=== PATIENT | female | born 1980 | race Native Hawaiian/Other Pacific Islander ===

== ENCOUNTER 2020-03-29 13:03 | Outpatient (CLI) | payer OTHER | END 2020-03-29 19:26 | disposition home or self-care (01) | LOC: EMG 13:03 | PROVIDERS: ATTEND Pain Medicine Interventional Pain Medicine | DX: M50.222 Other cervical disc displacement at C5-C6 level (principal) | CPT/HCPCS: 95860; 95910 ==